=== PATIENT | female | born 1975 | race Two or more races ===

== ENCOUNTER 2019-09-08 20:33 | Emergency (ER) | payer MEDICAID ==
[~2019-09-08] VITALS: Ht 154.9 cm; Wt 82.3 kg
[~2019-09-08 20:33] MED LIST: PHENL PO
[2019-09-08] MEDS ORDERED: PHEN100C9 PO (21:59)
[2019-09-08] MEDS ORDERED: KETOROLAC TROMETHAMINE 60 MG/2 ML VIAL IM ONE (22:45)
[2019-09-08] MEDS ORDERED: ACETAMINOPHEN 500 MG TABLET PO ONE (22:45)
[2019-09-09 00:11] VITALS: BP 122/90
== END 2019-09-09 00:50 | disposition home or self-care (01) ==
LOC: EMS 20:35
DX: S13.8XXA Sprain of joints and ligaments of other parts of neck, initial encounter (principal); G40.909 Epilepsy, unspecified, not intractable, without status epilepticus; J40 Bronchitis, not specified as acute or chronic; Z98.890 Other specified postprocedural states; Z79.899 Other long term (current) drug therapy; X58.XXXA Exposure to other specified factors, initial encounter; Y93.89 Activity, other specified; Y92.89 Other specified places as the place of occurrence of the external cause; Y99.8 Other external cause status
CPT/HCPCS: 71045; 81025; 96372; 99283; J1885